=== PATIENT | female | born 1985 | race Caucasian/White ===

== ENCOUNTER 2019-09-23 08:07 | Outpatient (CLI) | payer BC ==
--- NOTE | 2019-09-23 08:47 | CT ---
CT Abdomen Pelvis W Con History: Nonalcoholic fatty liver. Right upper quadrant pain Comparison: None. Findings: Lung bases are clear. No pericardial effusion. The aortoiliac contour is nonaneurysmal. Focal fatty infiltration hepatic segment IVb the falciform ligament. The portal vein is patent. Small right interpolar hypodensity suggestive of a cyst. The pancreas, liver, adrenal glands are unre markable. No hydronephrosis. Mild dilatation of the gonadal veins. No acute osseous abnormality. Impression: 1. No acute inflammatory process in the abdomen or pelvis. 2. Focal fatty infiltration hepatic segment 4B near the falciform ligament. 3. Simple benign right renal cyst. 4. Normal appendix. 5. Mild dilatation of the canal base can be seen with pelvic congestive syndrome.
== END 2019-09-23 08:08 | disposition home or self-care (01) ==
LOC: BICCT 08:07
PROVIDERS: ATTEND Internal Medicine Gastroenterology
DX: K76.0 Fatty (change of) liver, not elsewhere classified (principal); R10.11 Right upper quadrant pain; N28.1 Cyst of kidney, acquired; N94.89 Other specified conditions associated with female genital organs and menstrual cycle
CPT/HCPCS: 74177